=== PATIENT | male | born 2000 | race Caucasian/White ===

== ENCOUNTER 2022-10-05 19:56 | Inpatient (IN) | payer BC, OTHER ==
[~2022-10-05] VITALS: Ht 172.7 cm; Wt 96.4 kg
[2022-10-05] MEDS ORDERED: PROPOFOL 1,000 MG/100 ML VIAL As Ordered ONE (20:10)
[2022-10-05] MEDS ORDERED: NS 1,000 ML IV ONE (20:10)
[2022-10-05] MEDS ORDERED: ETOMIDATE INJ 20MG/10ML VIAL IV ONE (20:10)
[2022-10-05] MEDS ORDERED: ROCURONIUM BROMIDE 50MG/5ML VIAL IV ONE (20:10)
[2022-10-05] MEDS: propofoL 1,000 MG in IV 1 EA IV SCH ×2 (20:16→22:19)
[2022-10-05] MEDS ORDERED: ROCURONIUM BROMIDE 50MG/5ML VIAL IV PRN (20:20)
[2022-10-05 20:41] LABS: BASO # 0.1 10^3/uL (0.0-0.2); BASO % 0.6 % (0.0-1.0); EOS # 0.1 10^3/uL (0.0-0.5); EOS % 0.5 % (0.0-3.0); HEMATOCRIT 49.5 % (42.0-52.0); HEMOGLOBIN 16.8 g/dl (13.5-17.5); LYMPH # 2.5 10^3/uL (1.5-5.0); LYMPH % 19.8 % (24.0-44.0); MEAN CORPUSCULAR HEMOGLOBIN 29.9 pg (27.0-33.0); MEAN CORPUSCULAR HGB CONC 33.9 g/dl (32.0-36.5); MEAN CORPUSCULAR VOLUME 88.1 fl (80.0-96.0); MONO # 0.7 10^3/uL (0.0-0.8); MONO % 5.8 % (2.0-8.0); NEUTROPHILS # 9.1 10^3/uL (1.5-8.5); NEUTROPHILS % 72.5 % (36.0-66.0); PLATELET COUNT, AUTOMATED 244 10^3/uL (150-450); RED BLOOD COUNT 5.62 10^6/uL (4.30-6.10); WHITE BLOOD COUNT 12.5 10^3/uL (4.0-10.0)
[2022-10-05] MEDS ORDERED: ISOVUE-370 76% 100ML VIAL As Ordered ONE (21:03)
[2022-10-05 21:07] LABS: METHADONE URINE NEGATIVE (NEGATIVE); OPIATES URINE NEGATIVE (NEGATIVE)
[2022-10-05 21:08] LABS: AMPHETAMINES LEVEL URINE NEGATIVE (NEGATIVE); BARBITURATES URINE NEGATIVE (NEGATIVE); BENZODIAZEPINES URINE NEGATIVE (NEGATIVE); COCAINE METABOLITE URINE NEGATIVE (NEGATIVE); PHENCYCLIDINE URINE NEGATIVE (NEGATIVE)
[2022-10-05 21:09] LABS: INR 0.99; PROTHROMBIN TIME 13.3 SECONDS (12.5-14.5)
[2022-10-05 21:10] LABS: CK-MB VALUE MASS < 1.0 NG/ML (<3.6)
[2022-10-05 21:10] LABS: PARTIAL THROMBOPLASTIN TIME 34.8 SECONDS (24.8-34.2)
[2022-10-05 21:13] LABS: ACETAMINOPHEN LEVEL < 2.0 UG/ML (10.0-20.0); ALBUMIN 4.9 G/DL (3.2-5.2); ALKALINE PHOSPHATASE 67 U/L (46-116); ALT/SGPT 19 U/L (7.0-40); AST/SGOT 24 U/L (<34); BILIRUBIN,DIRECT 0.3 MG/DL (<0.4); BILIRUBIN,TOTAL 0.8 MG/DL (0.3-1.2); BLOOD UREA NITROGEN 10 MG/DL (9-23); CALCIUM LEVEL 9.4 MG/DL (8.5-10.1); CARBON DIOXIDE LEVEL 27 MMOL/L (20-31); CHLORIDE LEVEL 106 MMOL/L (98-107); CREATININE FOR GFR 1.06 MG/DL (0.70-1.30); GLOMERULAR FILTRATION RATE > 60.0 (>60); GLUCOSE, FASTING 87 MG/DL (60-100); SALICYLATE LEVEL < 3.0 MG/DL (<30); SODIUM LEVEL 143 MMOL/L (136-145); TOTAL PROTEIN 7.9 G/DL (5.7-8.2)
[2022-10-05 21:14] LABS: THYROID STIMULATING HORMONE 3.544 uIU/ML (0.55-4.78)
[2022-10-05 21:19] LABS: CANNABINOIDS URINE POSITIVE (NEGATIVE)
[2022-10-05 21:24] LABS: CPK CREATINE PHOSPHOKINASE 153 U/L (46-171); ETHYL ALCOHOL (ETHANOL) 0.319 % (0.000-0.010); MB/CK RELATIVE INDEX 0.65 (< OR =4)
[2022-10-05] MEDS ORDERED: MIDAZOLAM 100MG/100ML-0.9%NACL 100 MG in IV 1 EA IV SCH (21:35)
[2022-10-05] MEDS: MIDAZOLAM 100MG/100ML-0.9%NACL 100 MG in IV 1 EA IV SCH (21:42)
[2022-10-05 21:44] LABS: ABG BASE EXCESS -6.5 (-2.0-2.0); ABG HCO3 18.8 MEQ/L (22.0-26.0); ABG PARTIAL PRESSURE CO2 37.4 mmHg (35.0-45.0); ABG PARTIAL PRESSURE O2 81.9 mmHg (75.0-100.0); ABG STANDARD HCO3 19.2 MEQ/L (22.0-26.0)
[2022-10-05 22:07] LABS: RSV AMPLIFICATION NEGATIVE (NEGATIVE)
[2022-10-05] MEDS ORDERED: ROCURONIUM BROMIDE 50MG/5ML VIAL ONE (23:36)
[2022-10-05] MEDS ORDERED: ETOMIDATE INJ 20MG/10ML VIAL ONE (23:36)
[2022-10-06] VITALS (24 sets, daily range): BP systolic 98–157; BP diastolic 50–87
[2022-10-06] MEDS ORDERED: NS 500 ML IV ONE ×3 (00:35→06:00)
[2022-10-06] MEDS: MIDAZOLAM 100MG/100ML-0.9%NACL 100 MG in IV 1 EA IV SCH (01:47)
[2022-10-06] MEDS ORDERED: MULTIVITAMIN -ADULT INJECTION 10 ML, THIAMINE INJection 100 MG, FOLIC ACID 1 MG in NS 1... IV ONE (02:00)
[2022-10-06] MEDS: propofoL 1,000 MG in IV 1 EA IV SCH ×5 (03:00→21:41)
[2022-10-06] MEDS ORDERED: PANTOPRAZOLE 40MG VIAL IV SCH (03:35)
[2022-10-06 05:33] LABS: BASO # 0.1 10^3/uL (0.0-0.2); BASO % 0.7 % (0.0-1.0); EOS # 0.2 10^3/uL (0.0-0.5); HEMATOCRIT 48.4 % (42.0-52.0); HEMOGLOBIN 15.9 g/dl (13.5-17.5); LYMPH # 3.9 10^3/uL (1.5-5.0); LYMPH % 34.2 % (24.0-44.0); MEAN CORPUSCULAR HEMOGLOBIN 30.3 pg (27.0-33.0); MEAN CORPUSCULAR HGB CONC 32.9 g/dl (32.0-36.5); MEAN CORPUSCULAR VOLUME 92.4 fl (80.0-96.0); MONO # 1.3 10^3/uL (0.0-0.8); MONO % 11.2 % (2.0-8.0); NEUTROPHILS # 5.9 10^3/uL (1.5-8.5); NEUTROPHILS % 51.4 % (36.0-66.0); PLATELET COUNT, AUTOMATED 200 10^3/uL (150-450); RED BLOOD COUNT 5.24 10^6/uL (4.30-6.10); WHITE BLOOD COUNT 11.5 10^3/uL (4.0-10.0)
[2022-10-06] MEDS: HEPARIN SOD (PORCINE) 5000UNITS/ML 1ML VIAL/SYRINGE SC SCH ×3 (05:35→21:41)
[2022-10-06 05:51] LABS: ABG BASE EXCESS -2.5 (-2.0-2.0); ABG HCO3 22.4 MEQ/L (22.0-26.0); ABG O2 SATURATION 96.2 % (95.0-99.0); ABG PARTIAL PRESSURE CO2 39.3 mmHg (35.0-45.0); ABG PARTIAL PRESSURE O2 84.6 mmHg (75.0-100.0); ABG STANDARD HCO3 22.4 MEQ/L (22.0-26.0); ABG TOTAL CO2 23.6 MEQ/L (22.0-29.0); ABG pH (ARTERIAL) 7.374 UNITS (7.350-7.450)
[2022-10-06] MEDS: MIDAZOLAM INJ 2MG/2ML VIAL IV PRN ×6 (06:18→23:03)
[2022-10-06] MEDS: fentaNYL 100 MCG/2 ML INJECTION IV PRN ×2 (07:30→18:32)
[2022-10-06] MEDS ORDERED: HALOPERIDOL 5MG/ML 1ML VIAL IM STA (07:32)
[2022-10-06] MEDS ORDERED: HALOPERIDOL 5MG/ML 1ML VIAL As Ordered ONE (07:34)
[2022-10-06 07:40] LABS: ALKALINE PHOSPHATASE 55 U/L (46-116); ALT/SGPT 19 U/L (7.0-40); AST/SGOT 25 U/L (<34); BILIRUBIN,TOTAL 0.6 MG/DL (0.3-1.2); BLOOD UREA NITROGEN 8 MG/DL (9-23); CALCIUM LEVEL 8.1 MG/DL (8.5-10.1); CARBON DIOXIDE LEVEL 22 MMOL/L (20-31); CHLORIDE LEVEL 112 MMOL/L (98-107); CREATININE FOR GFR 0.91 MG/DL (0.70-1.30); GLOMERULAR FILTRATION RATE > 60.0 (>60); GLUCOSE, FASTING 75 MG/DL (60-100); PHOSPHORUS LEVEL 3.3 MG/DL (2.5-4.9); SODIUM LEVEL 147 MMOL/L (136-145); TOTAL PROTEIN 6.6 G/DL (5.7-8.2)
[2022-10-06] MEDS ORDERED: fentaNYL 100 MCG/2 ML INJECTION IV ONE (07:40)
[2022-10-06] MEDS ORDERED: LACTATED RINGER'S 1000 ML IV ONE (07:55)
[2022-10-06] MEDS: CHLORHEXIDINE GLUCONATE 0.12 % 15ML UDC (PERIDEX ORAL RINSE) MT SCH ×2 (08:23→21:40)
[2022-10-06] MEDS: NS 0.45% 1,000 ML IV SCH ×2 (08:43→17:22)
[2022-10-06] MEDS ORDERED: THIAMINE 200MG 2ML VIAL IM SCH (09:00)
[2022-10-06] MEDS ORDERED: THIAMINE 200MG 2ML VIAL IV SCH (09:00)
[2022-10-06] MEDS: dexmedeTOMidine 200 MCG in IV 1 EA IV SCH ×3 (09:23→20:40)
[2022-10-06 16:13] LABS: BLOOD UREA NITROGEN 7 MG/DL (9-23); CARBON DIOXIDE LEVEL 26 MMOL/L (20-31); CHLORIDE LEVEL 111 MMOL/L (98-107); GLOMERULAR FILTRATION RATE > 60.0 (>60); GLUCOSE, FASTING 76 MG/DL (60-100); POTASSIUM SERUM 3.5 MMOL/L (3.5-5.1); SODIUM LEVEL 143 MMOL/L (136-145)
[2022-10-06] MEDS: PANTOPRAZOLE 40MG VIAL IV SCH (16:57)
[2022-10-06] MEDS ORDERED: ACETAMINOPHEN 650MG SUPP PR PRN (20:25)
[2022-10-06 23:31] LABS: APPEARANCE, URINE HAZY (CLEAR); BACTERIA, URINE AUTO NEGATIVE (NEGATIVE); BILIRUBIN, URINE AUTO NEGATIVE (NEGATIVE); BLOOD, URINE BLOOD NEGATIVE (NEGATIVE); COLOR, URINE AMBER (YELLOW); GLUCOSE, URINE (UA) AUTO NEGATIVE (NEGATIVE); KETONE, URINE AUTO 2+ mg/dL (NEGATIVE); LEUKOCYTE ESTERASE, URINE AUTO NEGATIVE (NEGATIVE); MUCUS, URINE SMALL (NEGATIVE); NITRITE, URINE AUTO NEGATIVE (NEGATIVE); PROTEIN, URINE AUTO 2+ mg/dL (NEGATIVE); RBC, URINE AUTO 19 /HPF (0-3); SPECIFIC GRAVITY URINE AUTO 1.035 (1.002-1.035); SQUAMOUS EPITHELIAL CELL UR AU 0 /HPF (0-6); UROBILINOGEN, URINE AUTO 0.2 mg/dL (0.0-2.0); WBC, URINE AUTO 2 /HPF (0-3)
[2022-10-07] VITALS (19 sets, daily range): BP systolic 89–153; BP diastolic 52–93
[2022-10-07] MEDS: dexmedeTOMidine 200 MCG in IV 1 EA IV SCH ×2 (01:15→06:11)
[2022-10-07] MEDS: propofoL 1,000 MG in IV 1 EA IV SCH (01:15)
[2022-10-07] MEDS ORDERED: KETOROLAC 30 MG/ML 1ML VIAL IV ONE (01:45)
[2022-10-07] MEDS: PIPERACILLIN/TAZOBACTAM SOD 4.5 GM in D5W MINI-BAG PLUS 50 ML IV SCH ×4 (02:31→21:21)
[2022-10-07] MEDS: MIDAZOLAM INJ 2MG/2ML VIAL IV PRN (02:44)
[2022-10-07] MEDS ORDERED: VANCOMYCIN HCL 1,000 MG, VIAL MATE ADAPTER 1 EACH in D5W 250 ML IV ONE (03:00)
[2022-10-07] MEDS: NS 0.45% 1,000 ML IV SCH (03:10)
[2022-10-07] MEDS ORDERED: VANCOMYCIN HCL 750 MG, VIAL MATE ADAPTER 1 EACH in D5W 250 ML IV ONE (04:00)
[2022-10-07 04:12] LABS: HEMATOCRIT 38.6 % (42.0-52.0); MEAN CORPUSCULAR HEMOGLOBIN 30.7 pg (27.0-33.0); MEAN CORPUSCULAR HGB CONC 34.2 g/dl (32.0-36.5); MEAN CORPUSCULAR VOLUME 89.8 fl (80.0-96.0); PLATELET COUNT, AUTOMATED 157 10^3/uL (150-450); WHITE BLOOD COUNT 12.4 10^3/uL (4.0-10.0)
[2022-10-07] MEDS ORDERED: propofoL 1,000 MG in IV 1 EA IV SCH (04:15)
[2022-10-07 04:23] LABS: HEMOGLOBIN 13.2 g/dl (13.5-17.5)
[2022-10-07 04:50] LABS: BLOOD UREA NITROGEN 13 MG/DL (9-23); CALCIUM LEVEL 7.9 MG/DL (8.5-10.1); CARBON DIOXIDE LEVEL 23 MMOL/L (20-31); CHLORIDE LEVEL 107 MMOL/L (98-107); CREATININE FOR GFR 0.92 MG/DL (0.70-1.30); GLOMERULAR FILTRATION RATE > 60.0 (>60); GLUCOSE, FASTING 106 MG/DL (60-100); POTASSIUM SERUM 3.1 MMOL/L (3.5-5.1); SODIUM LEVEL 141 MMOL/L (136-145)
[2022-10-07] MEDS ORDERED: KCL 20MEQ IN 100ML SWI (KRUN) 20 MEQ in IV 1 EA IV ONE ×2 (05:15)
[2022-10-07 05:29] LABS: MAGNESIUM LEVEL 1.8 MG/DL (1.8-2.4)
[2022-10-07 05:46] LABS: ABG HCO3 21.9 MEQ/L (22.0-26.0); ABG O2 SATURATION 98.6 % (95.0-99.0); ABG PARTIAL PRESSURE CO2 31.6 mmHg (35.0-45.0); ABG PARTIAL PRESSURE O2 121.5 mmHg (75.0-100.0); ABG STANDARD HCO3 23.6 MEQ/L (22.0-26.0); ABG TOTAL CO2 22.9 MEQ/L (22.0-29.0); ABG pH (ARTERIAL) 7.459 UNITS (7.350-7.450)
[2022-10-07] MEDS: HEPARIN SOD (PORCINE) 5000UNITS/ML 1ML VIAL/SYRINGE SC SCH ×3 (05:54→21:22)
[2022-10-07] MEDS: KCL 10MEQ/100ML SWI (KRUN) X 2 DOSES (20MEQ TOTAL) IV SCH ×4 (05:54→07:02)
[2022-10-07] MEDS ORDERED: FOLIC ACID 1MG TAB PO SCH (09:00)
[2022-10-07] MEDS ORDERED: MULTIVITAMINS/MINERALS THERAP 1 TAB PO SCH (09:00)
[2022-10-07] MEDS: VANCOMYCIN HCL 1,000 MG, VIAL MATE ADAPTER 1 EACH in NS 250 ML IV SCH ×2 (11:12→19:51)
[2022-10-07] MEDS ORDERED: LORazepam 2 MG TAB PO PRN (11:20)
[2022-10-07] MEDS: FOLIC ACID 1MG TAB PO SCH (13:52)
[2022-10-07] MEDS: THIAMINE 100 MG TAB PO SCH ×2 (13:53→21:00)
[2022-10-07] MEDS: MULTIVITAMINS/MINERALS THERAP 1 TAB PO SCH (13:53)
[2022-10-07] MEDS: PANTOPRAZOLE 40MG VIAL IV SCH (17:40)
[2022-10-07] MEDS: ESCITALOPRAM OXALATE 10 MG TAB (LEXAPRO) PO SCH (19:51)
[2022-10-07] MEDS ORDERED: CHLORASEPTIC SPRAY MT PRN (20:30)
[2022-10-07] MEDS ORDERED: ACETAMINOPHEN TAB 650MG DOSE (2X325MG) PO PRN (21:40)
[2022-10-08] MEDS: PIPERACILLIN/TAZOBACTAM SOD 4.5 GM in D5W MINI-BAG PLUS 50 ML IV SCH ×4 (01:51→20:40)
[2022-10-08 03:37] LABS: HEMATOCRIT 35.8 % (42.0-52.0); HEMOGLOBIN 12.3 g/dl (13.5-17.5); MEAN CORPUSCULAR HEMOGLOBIN 30.4 pg (27.0-33.0); MEAN CORPUSCULAR HGB CONC 34.4 g/dl (32.0-36.5); MEAN CORPUSCULAR VOLUME 88.6 fl (80.0-96.0); PLATELET COUNT, AUTOMATED 142 10^3/uL (150-450); RED BLOOD COUNT 4.04 10^6/uL (4.30-6.10); WHITE BLOOD COUNT 9.1 10^3/uL (4.0-10.0)
[2022-10-08 03:40] LABS: BLOOD UREA NITROGEN 7 MG/DL (9-23); CALCIUM LEVEL 7.6 MG/DL (8.5-10.1); CARBON DIOXIDE LEVEL 24 MMOL/L (20-31); CHLORIDE LEVEL 109 MMOL/L (98-107); CREATININE FOR GFR 0.83 MG/DL (0.70-1.30); GLOMERULAR FILTRATION RATE > 60.0 (>60); GLUCOSE, FASTING 113 MG/DL (60-100); POTASSIUM SERUM 3.5 MMOL/L (3.5-5.1); SODIUM LEVEL 142 MMOL/L (136-145)
[2022-10-08 06:00] VITALS: BP 134/79
[2022-10-08] MEDS: HEPARIN SOD (PORCINE) 5000UNITS/ML 1ML VIAL/SYRINGE SC SCH ×3 (06:00→20:41)
[2022-10-08 07:01] VITALS: BP 134/79
[2022-10-08] MEDS ORDERED: VANCOMYCIN HCL 1,000 MG, VIAL MATE ADAPTER 1 EACH in NS 250 ML IV SCH (07:40)
[2022-10-08] MEDS: THIAMINE 100 MG TAB PO SCH ×2 (08:43→20:41)
[2022-10-08] MEDS: MULTIVITAMINS/MINERALS THERAP 1 TAB PO SCH (08:43)
[2022-10-08] MEDS: FOLIC ACID 1MG TAB PO SCH (08:43)
[2022-10-08] MEDS: ESCITALOPRAM OXALATE 10 MG TAB (LEXAPRO) PO SCH (08:43)
[2022-10-08] MEDS ORDERED: HOME MED LIST COMPLETE! XX SCH (09:35)
[2022-10-08] MEDS: VANCOMYCIN HCL 750 MG, VIAL MATE ADAPTER 1 EACH in D5W 250 ML IV SCH ×2 (09:52→18:08)
[2022-10-08] MEDS: VANCOMYCIN HCL 500 MG in D5W MINI-BAG PLUS 100 ML IV SCH ×2 (11:08→19:25)
[2022-10-08 14:00] VITALS: BP 135/79
[2022-10-08] MEDS: PANTOPRAZOLE 40MG VIAL IV SCH (18:07)
[2022-10-08 19:42] VITALS: BP 136/83
[2022-10-08 20:00] VITALS: BP 136/85
[2022-10-09] MEDS: VANCOMYCIN HCL 750 MG, VIAL MATE ADAPTER 1 EACH in D5W 250 ML IV SCH (01:05)
[2022-10-09] MEDS: VANCOMYCIN HCL 500 MG in D5W MINI-BAG PLUS 100 ML IV SCH (01:14)
[2022-10-09 02:00] VITALS: BP 132/80
[2022-10-09] MEDS: PIPERACILLIN/TAZOBACTAM SOD 4.5 GM in D5W MINI-BAG PLUS 50 ML IV SCH ×2 (02:51→07:55)
[2022-10-09 06:00] VITALS: BP 134/83
[2022-10-09 06:13] VITALS: BP 135/79
[2022-10-09] MEDS: HEPARIN SOD (PORCINE) 5000UNITS/ML 1ML VIAL/SYRINGE SC SCH ×2 (06:32→13:47)
[2022-10-09] MEDS: MULTIVITAMINS/MINERALS THERAP 1 TAB PO SCH (08:01)
[2022-10-09] MEDS: THIAMINE 100 MG TAB PO SCH (08:01)
[2022-10-09] MEDS: ESCITALOPRAM OXALATE 10 MG TAB (LEXAPRO) PO SCH (08:01)
[2022-10-09] MEDS: FOLIC ACID 1MG TAB PO SCH (08:01)
[2022-10-09 08:17] LABS: HEMATOCRIT 36.9 % (42.0-52.0); HEMOGLOBIN 12.6 g/dl (13.5-17.5); MEAN CORPUSCULAR HEMOGLOBIN 30.5 pg (27.0-33.0); MEAN CORPUSCULAR HGB CONC 34.1 g/dl (32.0-36.5); MEAN CORPUSCULAR VOLUME 89.3 fl (80.0-96.0); PLATELET COUNT, AUTOMATED 159 10^3/uL (150-450); RED BLOOD COUNT 4.13 10^6/uL (4.30-6.10); WHITE BLOOD COUNT 6.8 10^3/uL (4.0-10.0)
[2022-10-09 09:44] LABS: BLOOD UREA NITROGEN < 5 MG/DL (9-23); CALCIUM LEVEL 7.9 MG/DL (8.5-10.1); CARBON DIOXIDE LEVEL 25 MMOL/L (20-31); CHLORIDE LEVEL 108 MMOL/L (98-107); CREATININE FOR GFR 0.73 MG/DL (0.70-1.30); GLOMERULAR FILTRATION RATE > 60.0 (>60); GLUCOSE, FASTING 106 MG/DL (60-100); POTASSIUM SERUM 3.7 MMOL/L (3.5-5.1); SODIUM LEVEL 143 MMOL/L (136-145)
[2022-10-09 10:00] VITALS: BP 130/74
[2022-10-09 14:00] VITALS: BP_SYST 127; BP_SYST 128; BP_DIAS 72; BP_DIAS 78
[2022-10-09] MEDS: PANTOPRAZOLE 40MG VIAL IV SCH (16:45)
[2022-10-09] MEDS ORDERED: LEXA1TAB PO (18:17)
== END 2022-10-09 19:12 | disposition home or self-care (01) | DRG 133 ==
LOC: EDBD 19:56 → EDSEX 19:56 → M ED 19:56 → M ED INP 23:58 → EDBD 23:58 → ENRESERV 10-06 01:05 → M ICU 10-06 01:21 → M MSPAV 10-07 15:12
PROVIDERS: ADMIT Internal Medicine Pulmonary Disease; ATTEND Family Medicine
PROC: 0BH17EZ Insertion of Endotracheal Airway into Trachea, Via Natural or Artificial Opening (ICD-10-PCS; principal; 2022-10-05)
PROC: 5A1945Z Respiratory Ventilation, 24-96 Consecutive Hours (ICD-10-PCS; 2022-10-05)
DX: J96.01 Acute respiratory failure with hypoxia (principal); E87.20 Acidosis, unspecified; F10.129 Alcohol abuse with intoxication, unspecified; F10.139 Alcohol abuse with withdrawal, unspecified; R51.9 Headache, unspecified; F32.A Depression, unspecified; F10.14 Alcohol abuse with alcohol-induced mood disorder; F63.9 Impulse disorder, unspecified